=== PATIENT | female | born 1945 | race Caucasian/White ===

== ENCOUNTER → 2017-11-22 | Outpatient (CLI) | payer OTHER ==
[~2017-11-22] MED LIST: AMLODIPINE BESY10 MG PO; DICLOFENAC SODI75 MG PO; KAPSPARGO SPRI100 MG PO; METFORMIN HCL500 MG PO; NORCO 5-325 TA1 EACH PO; OMEPRAZOLE 20 M20 M1 PO; ZOCOR20 MG PO
--- NOTE | 2018-01-02 16:06 | PATH ---
[address] [address] PATHOLOGY RPT PROCEDURE Name: JUNIORAVA Christine Room: [facility] Jie#: [id number] Admission: 11/22/17 Date of : 49 Discharge: Report #: [id number] Path Case #: [id number] [facility] Accession Number: [id number] . 01 Material submitted: . LEFT BREAST . 01 Pre-operative diagnosis: . . 01 Clinical history: . 1.5 x 1.4 x 1.5 cm mass, 1:00, 4 cm from nipple . 02 Diagnosis: Left breast, 1:00, 4 cm from nipple, image-guided core biopsies: - Infiltrating ductal adenocarcinoma, high-grade (III of III), spanning 11 mm, with focal micropapillary features. See comment. (HAILEY:ludy; 11/24/2017) QMS/11/24/2017 . 02 Comment: Specimen type: Image guided core biopsies Tumor site: Left breast, 1:00, 4 cm from nipple Tumor quantitation: Approximately 95% of submitted tissues Histologic type: Ductal adenocarcinoma Histologic grade: III/III (high grade) Tubules, nuclei and mitoses: 3, 3, 3 LVSI: Indeterminate Microcalcifications: Not identified Markers: Breast tumor profile pending Block: A1 . . Most of the submitted tissues shows high-grade ductal carcinoma with focal micropapillary features and foci indeteriminate for lymphovascular invasion. Breast tumor profile studies are pending on A1 and will be the subject of an addendum report. Reviewed with Dr. Shant Vazquez, who agrees with the diagnosis. Cecile (acting [facility] breast navigator) notified at approximately 1100 on 11/25/2017. . . (HAILEY:ludy; 11/24/2017) . 02 Addendum: . Special studies report received from [facility], [address] [place] [address], [address], [place], [address], on case [id number], labeled with their number [id number], dated 11/28/2017. . Predictive/Prognostic [place] [address] PATHOLOGY RPT PROCEDURE Name: AVA PACHECO Christine Room: [facility] SUE Ceron#: [id number] Admission: 11/22/17 Date of : 49 Discharge: Report #: [id number] Path Case #: [id number] . Specimen 1: Lt Breast Specimen ID#: [id number] ER Present/Positive Percent: 4.8% Intensity: Weak Analysis Type: Computer Assisted . TX Absent/Negative Percent: 0 Intensity: Not Applicable Analysis Type: Computer Assisted . HER2 Not Over-Expressed Score: 1+ Analysis Type: Computer Assisted . KI67 High Proliferation Percent: 55.0% Analysis Type: Computer Assisted . Fixation Information Type of Fixative : 10% Neutral Buffered Formalin Time to Fixation : 5 minutes Duration of Fixation : 28 hours 28 minutes . Codes: Reported CPT Code(s): 29948-75 X 4 . at [facility], Naye Montero MD . Methodology The HER2 Receptor protein expression is analyzed using the [place] HER2 rabbit monoclonal antibody (clone [id number]). This assay is used for diagnostic determination of the HER2 protein over-expression in paraffin embedded, formalin fixed breast cancer tissue on the [place] Benchmark. The specimen is processed using a polymer detection system. The membrane staining of the tumor is determined either by manual score or image analysis. This antibody is intended for in vitro diagnostic use. The score is reported as per package insert; 0, 1+, 2+, and 3+. This test is used for clinical purposes. . A rabbit monoclonal antibody (clone SP1) that [place] [address] PATHOLOGY RPT PROCEDURE Name: AVA PACHECO Room: [facility] Jie#: [id number] Admission: 11/22/17 Date of : 49 Discharge: Report #: [id number] Path Case #: [id number] Receptor is used to perform immunohistochemistry on routinely fixed (formalin) paraffin embedded tissue on the [place] Benchmark. The specimen is processed using a polymer detection system. The percentage of stained tumor nuclei is determined either manually or by image analysis. This test is intended for in vitro diagnostic use. This test is used for clinical purposes. . A rabbit monoclonal antibody (clone 1E2) that recognized the Progesterone Receptor is used to perform immunohistochemistry on routinely fixed (formalin) paraffin embedded tissue on the [place] Benchmark. The specimen is processed using a polymer detection system. The percentage of stained tumor nuclei is determined either manually or by image analysis. This test is intended for in vitro diagnostic use. This test is used for clinical purposes. . A rabbit monoclonal antibody (clone 30-9) that recognized Ki67 is used to perform immunohistochemistry on routinely fixed (formalin) paraffin embedded tissue on the [place] Benchmark. The specimen is processed using a polymer detection system. The percentage of stained tumor nuclei is determined either manually or by image analysis. This test is intended for in vitro diagnostic use. This test is used for clinical purposes. . Intended Use (when used as Prognostic/Predictive Markers): This antibody is intended for in vitro diagnostic (IVD) use. Estrogen Receptor (ER) (SP1) is a rabbit monoclonal antibody (IgG) that is intended for the qualitative detection of estrogen receptor (ER) antigen in sections of formalin-fixed, paraffin-embedded tissue. ER is a rabbit monoclonal antibody that recognizes human estrogen receptor alpha. . This antibody is intended for in vitro diagnostic (IVD) use. Progesterone Receptor (TX) (1E2) is a rabbit monoclonal antibody (IgG) that is intended for the qualitative detection of progesterone receptor (TX) antigen in sections of formalin fixed, paraffin embedded tissue. TX is a rabbit monoclonal antibody that recognizes the A and B forms of the human progesterone receptor. . This antibody is intended for in vitro diagnostic (IVD) use. HER2 (4B5) is a rabbit monoclonal antibody intended for the semi-quantitative detection of HER2 antigen in sections of formalin-fixed, paraffin embedded normal and neoplastic tissue. The HER2 protein is expressed as a level detectable by immunohistochemistry in up to 20 percent of adenocarcinomas from various sites. . This antibody is intended for in vitro diagnostic (IVD) use. Ki-67 (30-9) is a rabbit monoclonal antibody (IgG) directed against C-terminal portion of Ki-67 antigen. Staining for Ki-67 can be used to aid in assessing the proliferative activity of normal and neoplastic tissue. Ki-67 is a nuclear protein expressed in proliferating cells. During the cell cycle, the Ki-67 antigen is present in the G1, S, G2 and M phase but is absent in the G0 [place] [address] PATHOLOGY RPT PROCEDURE Name: AVA PACHECO Room: [facility]#: [id number] Admission: 11/22/17 Date of : 49 Discharge: Report #: [id number] Path Case #: [id number] (quiescent phase). . . Disclaimer [facility] is a business unit of [employer] a wholly-owned subsidiary of [employer]. . Technical component performed by [employer] at [address], [place] [address], [place] [address] Jeremy Sidhu MD . Professional component performed by [facility], at [address] [place] [address] . Any image(s) that accompany this report is/are a procurement representative image(s) only and should not be used to render a diagnosis. . HER2 testing at [employer] is performed in compliance with the 2013 updated ASCO/CAP Clinical Practice Guidelines and Recommendations for HER2 testing in Breast Cancer. If the result is EQUIVOCAL (2+), it must be confirmed by an alternative assay such as FISH or Dual SARI. REF: Iris EVANS, et al. Recommendations for human epidermal growth factor receptor 2 testing in breast cancer: [place] Society of Clinical Oncology/College of Chinese pathologists Clinical Practice Guideline Update. J Clin Oncol. 2013 Feb 09;31(31):2807-4163. . HER2 and ER/TX ASCO/CAP guidelines require fixation in neutral buffered formalin for a minimum of 6 and a maximum of 72 hours. Fixation times less than 6 hours may not adequately preserve cell proteins. Fixation times longer than 72 hours may cause excess cross-linking of proteins reducing the antigen available for staining. Either scenario can cause reduced staining; hence false negative results are possible and should be considered for these situations if the HER2 IHC score is less than 3+ or ER or TX is negative (no staining or <1% positive). It is recommended that specimens fixed longer than 72 hours with HER2 IHC scores less than 3+ be confirmed by HER2 FISH or Dual SARI. The time from biopsy/excision to fixation in formalin (cold ischemic time) must be less than 1 hour. Time to fixation (cold ischemic time) greater than 1 hour should be interpreted with caution. HER2 testing, mainly HER2 by FISH, is particularly vulnerable since excessive cold ischemic time results in preferential loss of HER2 probe signals that may lead to false negative results. . The immunohistochemistry tests performed at [employer] were validated on tissue fixed in 10% neutral buffered formalin. The performance characteristics of the tests performed on tissue processed in other fixatives is not known. . SCORE STAINING PATTERN IN TUMOR CELL[place] [address] PATHOLOGY RPT PROCEDURE Name: AVA PACHECO Room: [facility] Ceron#: [id number] Admission: 11/22/17 Date of : 49 Discharge: Report #: [id number] Path Case #: [id number] RESULTS 0 No staining observed or incomplete, faint membrane staining in less than or equal to 10% of tumor cells. Negative 1+ Incomplete, faint membrane staining in greater than 10% of tumor cells. Negative 2+ Incomplete and/or weak/moderate circumferential membrane staining . in greater than 10% of the invasive tumor cells or complete, . circumferential, intense alternative assay staining in less than or equal to 10% of invasive tumor cells. Equivocal* *Must be confirmed by alternative assay (IHC/FISH/Dual SARI) 3+ Intense, complete membrane staining in greater than 10% of tumor cells. Positive . A complete copy of the report is on file. . Professional services performed by Professional component performed by [facility], [facility] at [address] [place] [address]. Technical services performed by [employer] at [facility] [address], [address], [place] [address]. . (AMJ 11/29/2017) . AZJ/11/29/2017 Addendum Electronically Signed by Lex Culp MD, Pathologist Addendum #2: Special studies report received from [facility], [address] [place] [address], [address], [place], [address], on case [id number], labeled with their number [id number], dated 12/30/2017. . Fluorescence in situ Hybridization (FISH) Report HER2/MIGUEL ANGEL-17 Dual-Probe (Breast Cancer) . Result: Cannot be Determined: See Result Comments . Indication for Study: Breast Cancer Specimen Site/Type: Left Breast Tissue - 1:00 Fixative: 10% Neutral Buffered Formalin Time to Fixation: 5 Minutes Duration of Fixation: 28 Hours 29 Minutes . HER2 FISH ANALYSIS [address] [address] PATHOLOGY RPT PROCEDURE Name: AVA PACHECO Room: [facility]#: [id number] Admission: 11/22/17 Date of : 49 Discharge: Report #: [id number] Path Case #: [id number] Number of tumor cells counted: 20 Number of observers: 2 Avg number of HER2 Signals/Nucleus: 6.4 Avg number of MIGUEL ANGEL-17 Signals/Nucleus: 4.9 Ratio of average HER2/MIGUEL ANGEL-17: 1.3 . Result Comments: By 2018 ASCO/CAP HER2 guidelines, the FISH result does not allow for definitive characterization of HER2 status. Within the guidelines, this case falls into SARI group (3). Please correlate the IHC result with the FISH findings provided in this report for the final determination of HER2 status. HER2 IHC was ordered as Technical Component only for this case. . Date specimen retrieved from storage: 12/27/2017 . Reviewed and electronically signed by Jeremy Sidhu M.D. on 12/30/2017 at [employer] Jeremy Sidhu M.D. Psychological Operations Officer . Methodology: A FDA approved [employer]Or HER2 IQFISH pharmDXT (HER2/MIGUEL ANGEL-17 DNA Probe Kit) was used for the assessment of HER2 gene amplification status. The FISH analysis was performed on areas of invasive tumor cells that were defined by a pathologist from a corresponding H/E slide. A minimum of twenty invasive tumor nuclei were analyzed by two technologists. For each nucleus, the number of HER2 signals and the number of centromere 17 (MIGUEL ANGEL-17) signals were recorded. Enumeration results are reported as a ratio of the total HER2 hybridization signals to MIGUEL ANGEL-17 hybridization signals. An average number of HER2 signals/nucleus and an average number of centromere 17 signals/nucleus were also recorded. If the HER2/MIGUEL ANGEL-17 ratio is greater than or equal to 2, the HER2 gene status is Amplified/ Positive. If the HER2/MIGUEL ANGEL-17 ratio is <2, the HER2 gene status is Non-Amplified/Negative. If results are at or near the cut off (1.8-2.2), an additional 20 nuclei are counted and the ratio for 40 nuclei is recalculated. A HER2/MIGUEL ANGEL-17 ratio of 1.8-2.2 should be interpreted with caution. The HER2 FISH results are reported using the 2018 ASCO/CAP guidelines. . Specimen handling: Tissue samples should be preserved in 10% neutral buffered formalin for 18-24 hours per FDA approved DAKOr HER2 IQFISH pharmDXT. Extended fixation time might increase the incubation time required for Pepsin digestion. ASCO/CAP guidelines requires fixation for a minimum of 6 and a maximum of 72 hours. The time from biopsy/excision to fixation in formalin (cold ischemic time) must be less than an hour. Time to fixation (cold ischemic time) greater than 1 hour should be interpreted with caution. HER2 testing, mainly HER2 by FISH, [place] [address] PATHOLOGY RPT PROCEDURE Name: AVA PACHECO Room: [facility] Ceron#: [id number] Admission: 11/22/17 Date of : 49 Discharge: Report #: [id number] Path Case #: [id number] cold ischemic time results in preferential loss of HER2 probe signals that may lead to false negative results. . Intended Use: HER2 IQFISH pharmDXT is indicated as an aid in the assessment of breast cancer patients for whom Herceptinr (Trastuzumab), PERJETATM (pertuzumab) or KADCYLATM(ado-trastuzumab emtansine) treatment is being considered. Results from HER2 IQFISH pharmDXT are also used as an adjunct to the clinicopathologic information currently used for estimating prognosis in stage II, node-positive breast cancer patients. . . Reference: Iris EVANS, BENITO Michel et al: Human Epidermal Growth Factor Receptor 2 Testing in Breast Cancer: ASCO/CAP Clinical Practice Guideline Focused Update. J Clin Oncol 36:3526-0018, 2018. . DAKO kit: Histology FISH Accessory kit code K5799 . . Disclaimer This Test was performed by [employer] at [address] [place] [address], [address]. [facility] is a business unit of [employer], a wholly-owned subsidiary of [employer]. . . This assay has not been validated on decalcified tissues. Results should be interpreted with caution if this specimen was decalcified given the likelihood of false negativity on decalcified specimens. . Any image(s) that accompany this report is/are a procurement representative image(s) only and should not be used to render a diagnosis. . A copy of the complete report is on file. . Professional services performed by [employer]. at [facility] [address], [place] [address]. Technical services performed by [employer] at [facility] [address] [address]. . (AMJ 01/02/2018) AZJ/01/02/2018 Addendum Electronically Signed by Lex Culp MD, Pathologist . 02 Electronically signed: . Lex Culp MD, Pathologist NPI- [id number] [facility] [address] [place] [address] PATHOLOGY RPT PROCEDURE Name: AVA PACHECO Room: [facility]#: [id number] Admission: 11/22/17 Date of : 49 Discharge: Report #: [id number] Path Case #: [id number] . 01 Gross description: . Received in formalin labeled "Ava Pacheco, left breast 1:00, 4 cm FN," are multiple needle cores of yellow-guerrero fibrofatty tissue measuring 1.8 x 0.6 x 0.2 cm in aggregate dimensions. The tissue is submitted in its entirety in cassettes A1 through A3. The cold ischemic time is 5 minutes. The total formalin fixation time is 28 hours and 28 minutes. (TSD; 11/22/2017) TOB/TOB . 02 Pathologist provided ICD-10: C50.912 . 02 CPT . 466881 Specimen Comment: A courtesy copy of this report has been sent to Specimen Comment: [phone], , . Specimen Comment: A duplicate report has been generated due to demographic updates. Performed at: [id number] [facility] [address], [place], [place] [id number] MD Danial Cesar MD Phone: [phone] Performed at: 02 [facility] [address] , [place], [place] [id number] MD Lex Culp MD Phone: [phone]
== END ==
LOC: M.RAD 11-14 13:37
DX: Z12.31 Encounter for screening mammogram for malignant neoplasm of breast (principal); N63.20 Unspecified lump in the left breast, unspecified quadrant; E04.9 Nontoxic goiter, unspecified

== ENCOUNTER → 2017-11-22 | Outpatient (CLI) | payer OTHER | LOC: M.ULTRA 13:10 | DX: N63.20 Unspecified lump in the left breast, unspecified quadrant (principal); R92.1 Mammographic calcification found on diagnostic imaging of breast ==

== ENCOUNTER → 2017-12-07 | Outpatient (CLI) | payer OTHER ==
[2017-12-07 13:45] LABS: CREATININE 0.9 mg/dL (0.6-1.3)
== END ==
LOC: M.LAB 13:13 → M.MRI 14:30
PROVIDERS: Surgery
DX: C50.912 Malignant neoplasm of unspecified site of left female breast (principal); C50.911 Malignant neoplasm of unspecified site of right female breast

== ENCOUNTER → 2017-12-09 | Outpatient (CLI) | payer OTHER ==
--- NOTE | 2017-12-18 13:16 | CON ---
[address] [address] CONSULTATION Name: EMANUEL PACHECO Room: [facility]#: [id number] Admission: 12/09/17 Attend Phys: Jeffry Negro MD Discharge: Date of : 49 Report #: [id number] THIS REPORT FOR: //name// CC: Jordan Light, CIELO Mark MD DATE OF SERVICE: 12/09/2017 RADIATION ONCOLOGY CONSULTATION NOTE REFERRING PHYSICIANS: Include: 1. Carly Mark M.D. 2. Jordan Silveira DO. 3. Nurse practitioner, [place] Light. 4. Jhonatan Kimball M.D. 5. Jeffry Goss M.D. PRIMARY SITE AND HISTOPATHOLOGY: The patient has findings consistent with an infiltrating ductal carcinoma of the left breast. HISTORY OF PRESENT ILLNESS: The patient indicated that she had a routine mammogram performed on 11/22/2017 and that revealed a lobulated mass in the left breast, that measured about 2.5 cm x 1.7 cm. She had an ultrasound-guided biopsy of this mass performed on 11/22/2017 and the pathology revealed a high grade, (grade 3/3), infiltrating ductal carcinoma with focal micropapillary features. It was 4.8% estrogen receptor positive, 0% progesterone receptor positive, HER2/sarah negative and Ki-67 was 55%. She had an MRI of the breast on 12/07/2017, which revealed a normal right breast, whereas the left breast had an enhancing mass in the upper outer quadrant, that measured about 2.7 cm x 2.3 cm x 2.8 cm as well as an enlarged left axillary lymph node with a lobulated cortex, concerning for an axillary lymph node metastasis. She presents to discuss her treatment options. PAST MEDICAL AND SURGICAL HISTORY: She had a cholecystectomy in 1975. She had a hysterectomy in 1985. She had a left shoulder operation in 2002. She had right knee operation in 2012, left knee operation in 2012 and sarcoidosis in 1989. She also has hypertension and diabetes. She had a melanoma that was removed from her face about 8 years ago. MEDICATIONS: Include Lopressor, simvastatin, amlodipine, omeprazole, [place] [address] CONSULTATION Name: EMANUEL PACHECO [facility] [id number] Admission: 12/09/17 Attend Phys: Jeffry Negro MD Discharge: Date of : 49 Report #: [id number] ALLERGIES: SULFA AND ADHESIVE TAPES. OBSTETRIC/GYNECOLOGIC HISTORY: Menarche at age 13, menopause in 1985. She is 4, para 2. FAMILY HISTORY: Mother had heart disease. Father had heart disease. SOCIAL HISTORY: She is retired. She is . She has 2 children. Ethanol: she drinks about one alcohol-containing beverage like wine per month. Cigarettes: she does not smoke cigarettes. REVIEW OF SYSTEMS: GENERAL: She denied having fevers or chills. SKIN: She denied having color changes or itching. LYMPH NODES: She denied having enlarged or painful glands in the neck. ENDOCRINE: She denied having any hot or cold intolerance. HEMATOLOGY/IMMUNOLOGY: The patient denied having anemia or recent bleeding. MUSCULOSKELETAL: She does have chronic back pain. HEAD AND NECK: She denied having any headaches, migraines or vertigo. RESPIRATORY: She sometimes has a cough from allergies. CARDIOVASCULAR: She denied having palpitations. GASTROINTESTINAL: Depending on her diet, she can have intermittent diarrhea that resolves on its own. NEUROLOGIC: She denied having any focal weakness. PHYSICAL EXAMINATION: With my nurse, Tanisha Page, present: VITAL SIGNS: Height 5 feet 1-1/2 inches, weight 232.8 pounds. Blood pressure 120/70 and pulse 66. GENERAL/PSYCHIATRIC: She was alert, oriented, and in no acute distress. EYES: Pupils were equal, round and reactive to light and accommodation. HEAD, EARS, NOSE AND THROAT EXAMINATION: The patient does have a palpable mass in the right submandibular area that measured about 2 cm x 2 cm. BREASTS: She does have a seroma versus palpable mass in the upper outer quadrant of the left breast, that measured about 2.3 cm x 2 cm. HEART: Had a regular rate and rhythm, without murmur. LUNGS: were clear to auscultation. ABDOMEN: Not tender. Spleen was not palpable. Liver was at the costal margin. EXTREMITIES: Had no clubbing, cyanosis or edema. NEUROLOGIC: Cranial nerves II to XII were intact. Sensation was intact. She had 5/5 strength in her extremities. ASSESSMENT AND PLAN: The patient has findings consistent with an infiltrating [address] [address] CONSULTATION Name: EMANUEL PACHECO [facility] [id number] Admission: 12/09/17 Attend Phys: Jeffry Negro MD Discharge: Date of : 49 Report #: [id number] ductal carcinoma of the left breast. There is a suspicious lymph node on her MRI. So, she was told that her options include breast conservation therapy versus mastectomy. This is based on studies such as the NSABP B-06 study, which randomized patients with early breast cancer between total mastectomy versus lumpectomy versus lumpectomy and radiation therapy. At 20 years followup, there was no difference in the survival rate between those 3 treatment groups. The addition of radiation therapy to lumpectomy reduced the local failure rate from 39% to 14%. She was told that if she opts for mastectomy, that only high-risk patients are offered radiation therapy. In that situation, those would be people that have lymph nodes involved with cancer versus positive margins versus breast cancers that were greater than 5 cm in size. The risks, benefits and logistics of radiation therapy were discussed with the patient in detail. She was leaning towards breast conservation therapy. So the risks, benefits and logistics of radiation therapy were explained to the patient in detail. She gave her witnessed, informed consent to proceed with radiation therapy. She was going to follow up with her ear, nose and throat physician, Dr. Goss, and her surgeon with scheduling her operations. She was asked to return for a follow up appointment to see me in approximately 6 weeks. She already saw her medical oncologist, Dr. Kimball. Thank you very much for this consult. <ELECTRONICALLY SIGNED> By: Jeffry Negro MD 12/18/17 1316 1228 0024Dmatti Negro MD /nt
== END ==
LOC: M.RTH 02:31
DX: C50.912 Malignant neoplasm of unspecified site of left female breast (principal); I10 Essential (primary) hypertension; E11.9 Type 2 diabetes mellitus without complications

== ENCOUNTER → 2017-12-14 | Outpatient (CLI) | payer OTHER ==
--- NOTE | 2018-01-02 14:09 | PATH ---
[address] [address] PATHOLOGY RPT PROCEDURE Name: AVA DWYER Christine Room: [facility] Jie#: [id number] Admission: 12/14/17 Date of : 49 Discharge: Report #: [id number] Path Case #: [id number] [facility] Accession Number: [id number] . 01 Material submitted: . LEFT AXILLA NODE . 01 Clinical history: . 2.4 x 1.0 x 2.0 cm node . 02 Diagnosis: Left axilla node, image guided core biopsies: - Benign lymphoid tissue. [facility]/12/16/2017 . 02 Comment: The great majority of all tissue cores represent benign lymphoid tissue and there is also evidence of a lymph node capsule in several cores. Properly controlled keratin AE1/AE3/CK26, performed on each of A1, A2 and A3, shows no evidence of metastatic tumor. (HAILEY:pit 12/16/2017) . 02 Electronically signed: . Lex Culp MD, Pathologist NPI- [id number] . 01 Gross description: . Received in formalin labeled "Ava Dwyer, left axilla node," are multiple needle cores of yellow-guerrero fibrofatty tissue measuring 0.8 x 0.6 x 0.2 cm in aggregate dimensions. The tissue is submitted in its entirety in cassettes A1 through A3. The specimen was collected at 8:56 AM, December 18, 2017. The specimen will be out of formalin at 11:40 PM, December 18, 2017. (TSD; 12/14/2017) TOB/TOB . 02 Pathologist provided ICD-10: R59.0 . 02 CPT . 408720, W87991 Specimen Comment: A courtesy copy of this report has been sent to Specimen Comment: [phone], , , . Specimen Comment: [id number] Performed at: [address] [facility] [address], [place], [place] [id number] MD Danial Cesar MD Phone: [phone] [place] [address] PATHOLOGY RPT PROCEDURE Name: AVA DWYER [facility] [id number] Admission: 12/14/17 Date of : 49 Discharge: Report #: [id number] Path Case #: [id number] Performed at: 02 [facility] [place] [address], [place] [id number] MD Lex Culp MD Phone: [phone]
== END | disposition home or self-care (01) ==
LOC: M.ULTRA 07:31
DX: R59.0 Localized enlarged lymph nodes (principal)

== ENCOUNTER → 2017-12-30 | Day surgery (SDC) | payer OTHER ==
[~2017-12-30] VITALS: Ht 154.9 cm; Wt 103.4 kg
[2017-12-30 07:12] LABS: HEMATOCRIT 42.6 % (37.0-47.0); HEMOGLOBIN 14.1 gm/dL (12.0-15.0); MCH 32.7 pg (26.0-34.0); MCHC 33.1 g/dL (28.0-37.0); MCV 98.5 fL (80.0-100.0); MPV 8.5 fl. (7.2-11.1); RBC 4.32 mil/uL (4.20-5.00); RDW-CV 13.1 % (10.5-14.5); WBC 8.6 thou/uL (4.0-11.0)
[2017-12-30 07:32] LABS: CALCIUM 8.7 mg/dL (8.5-10.1); CREATININE 0.8 mg/dL (0.6-1.3); POTASSIUM 4.3 mmol/L (3.5-5.1)
[2017-12-30 07:36] LABS: ALBUMIN 3.9 g/dL (3.4-5.0); TOTAL BILIRUBIN 0.4 mg/dL (<0.1-1.0); TOTAL PROTEIN 7.5 g/dL (6.4-8.2)
[2017-12-30 07:46] VITALS: BP 109/60
--- NOTE | 2017-12-30 11:43 | EKG ---
[place] [address] ELECTROCARDIOGRAM REPORT Name: JUNIORADEOLAEMANUEL L Room: [facility]#: [id number] Admission: 12/30/17 Attend Phys: Carly Mark MD Discharge: Date of : 49 Report #: [id number] THIS REPORT FOR: //name// [facility] Test Date: 2017-12-30 Test Time: 07:45:42 Pat Name: EMANUEL PACHECO Department: Room: Gender: F It Operations Specialist: : 1945 Requested By: Carly Mark Order Number: [id number] Reading MD: Fan Marie Measurements Intervals Amity Rate: 62 P: 32 ND: 195 QRS: 20 QRSD: 118 T: 54 QT: 447 QTc: 454 Interpretive Statements Sinus rhythm Nonspecific intraventricular conduction delay Low voltage, precordial leads No previous ECG available for comparison Electronically Signed On 12-30-2017 11:43:30 CDT by Fan Marie [email or web address] <ELECTRONICALLY SIGNED> By: Fan Marie MD, [facility] 12/30/17 1143 D: 09/744 Fan Marie MD, FACC /EPI
[2017-12-30 13:19] VITALS: BP 109/60
--- NOTE | 2018-01-05 15:07 | PATH ---
[address] [address] PATHOLOGY RPT PROCEDURE Name: EMANUEL DWYER Room: [facility]#: [id number] Admission: 12/30/17 Date of : 49 Discharge: Report #: [id number] Path Case #: [id number] [facility] Accession Number: [id number] . 01 Material submitted: . PART A: LEFT BREAST CANCER STITCH, SHORT SUPERIOR,LONG LATERAL, DOUBLE DEEP PART B: LEFT BREAST NEW MEDIAL MARGIN PART C: LEFT BREAST NEW LATERAL MARGIN PART D: LEFT BREAST TISSUE NEW SUPERIOR MARGIN PART E: LEFT BREAST NEW INFERIOR MARGIN PART F: LEFT BREAST TISSUE NEW ANTERIOR MARGIN PART G: LEFT BREAST NEW POSTERIOR MARGIN PART H: LEFT AXILLARY SENTINEL LYMPH NODE #1 HOT, BLUE MAX COUNT 1880 PART I: LEFT AXILLARY SENTINEL LYMPH NODE #2 HOT, NOT BLUE, MAX COUNT 493 . 01 Clinician provided ICD-10: C50.912 . 01 Clinical history: . Left breast cancer. . 02 Diagnosis: A. Left breast cancer: - DUCTAL ADENOCARCINOMA, HIGH-GRADE (III OF III), WITH MICROPAPILLARY FEATURES ASSOCIATED WITH CHANGES OF PRIOR BIOPSY, FORMING A MASS MEASURING 32 MM X 24 MM X 19 MM WITH ALL SURGICAL MARGINS FREE OF INVOLVEMENT AND CLOSEST (ANTERIOR) LOCATED 0.1 MM AWAY. . - DUCTAL CARCINOMA IN SITU (DCIS), NUCLEAR GRADE III, COMEDO, SOLID AND CRIBRIFORM TYPES, SPANNING AT LEAST 15 MM WITH INVOLVEMENT OF LATERAL MARGIN (SEE COMMENT). . B. Left breast new medial margin: - Benign fat. . C. Left breast, new lateral margin: - DCIS, NUCLEAR GRADE III, COMEDO TYPE, SPANNING 5 MM, WITH FINAL SURGICAL MARGIN FREE OF INVOLVEMENT AND LOCATED 0.8 MM AWAY (SEE COMMENT). . D. Left breast tissue new superior margin: - Benign breast tissue, negative for atypia. . E. Left breast new inferior margin: - Benign breast tissue with usual ductal epithelial hyperplasia, negative for atypia. . F. Left breast tissue new anterior margin: - Benign breast tissue, negative [place] [address] PATHOLOGY RPT PROCEDURE Name: EMANUEL DWYER Room: [facility]#: [id number] Admission: 12/30/17 Date of : 49 Discharge: Report #: [id number] Path Case #: [id number] G. Left breast new posterior margin: - Benign breast tissue with usual ductal epithelial hyperplasia, negative for atypia. . H. Left axillary sentinel lymph node #1 (hot, blue max count 1880): - ONE LYMPH NODE WITH INVOLVEMENT BY MICROMETASTASIS OF DUCTAL ADENOCARCINOMA MEASURING 1.7 MM, WITH CHANGES OF PRIOR BIOPSY (04/11) (SEE COMMENT). . I. Left axillary sentinel lymph node #1 (hot, not blue, max count 493): - One benign lymph node (see comment). [facility]/01/03/2018 . 02 Comment: Surgical Pathology Cancer Case Summary . INVASIVE CARCINOMA OF THE BREAST: . Procedure ___ Lumpectomy . Specimen Laterality ___ Left . Tumor Size ___ Greatest dimension of largest invasive focus >1 mm: 32 mm x 24 mm x 19.mm . Histologic Type ___ Ductal carcinoma with prominent micropapillary features . HISTOLOGIC GRADE (MANUEL HISTOLOGIC SCORE) . Glandular (Acinar)/Tubular Differentiation ___ Score 3 (<10% of tumor area forming glandular/tubular structures) . Mitotic Rate ___ Score 3 (=8 mitoses per mm2) . Overall Grade ___ Grade 3 (scores of 8 or 9) . + Tumor Focality + ___ Single focus of invasive carcinoma . Ductal Carcinoma In Situ (DCIS) ___ Present + ___ Negative for extensive intraductal component (EIC) [place] [address] PATHOLOGY RPT PROCEDURE Name: EMANUEL DWYER [id number] Admission: 12/30/17 Date of : 49 Discharge: Report #: [id number] Path Case #: [id number] . + Size (Extent) of DCIS + Estimated size of DCIS: At least 15 mm . + Architectural Patterns (select all that apply) + ___ Comedo, cribriform, and solid . + Nuclear Grade + ___ Grade III (high) . + Necrosis + ___ Present, central (expansive "comedo" necrosis) . + Lobular Carcinoma In Situ (LCIS) + ___ No LCIS in specimen . MARGINS ___ Uninvolved by invasive carcinoma Distance from closest margin: ___ Cannot be determined with certainty: Closest margin in lumpectomy is anterior, located 0.1 mm away; however, additional margins taken around primary lumpectomy and additional anterior margin measuring up to 6 mm in thickness. DCIS MARGINS ___ Uninvolved by DCIS Distance from closest margin: 0.8 mm Specify closest margin: Lateral REGIONAL LYMPH NODES ___ Involved by tumor cells Number of Lymph Nodes with Macrometastases (>2 mm): 0 Number of Lymph Nodes with Micrometastases (>0.2 mm to 2 mm and/or >200 cells): 1 + Size of Largest Metastatic Deposit: 1.7 mm . + Extranodal Extension: + ___ Not identified . Number of Lymph Nodes Examined: 2 Number of [place] Nodes Examined: 2 . Treatment Effect ___ No known presurgical therapy . + Lymphovascular Invasion + ___ Present . + Dermal Lymphovascular Invasion + ___ [place] [address] PATHOLOGY RPT PROCEDURE Name: REYMUNDOEMANUEL Christine Room: [facility]#: [id number] Admission: 12/30/17 Date of : 49 Discharge: Report #: [id number] Path Case #: [id number] PATHOLOGIC STAGE CLASSIFICATION (pTNM, AJCC 8th EDITION) Primary Tumor (Invasive Carcinoma) (pT) ___ pT2:Tumor >20 mm but =50 mm in greatest dimension . REGIONAL LYMPH NODES Modifier ___ (sn):[place] node(s) evaluated. Category (pN) ___ pN1mi: Micrometastases . + Ancillary Studies (Performed on prior left breast, 1:00, 4 cm from nipple biopsy; [id number]) ER 4.8%, IN 0, Her2 1+/not over expressed with subsequent FISH indeterminant, Ki-67 55%. . + Microcalcifications + ___ Not identified . . Per discussion of the preliminary findings with Dr. Mark at approximately 15:25 on 01/02/2018, she notes that the sutured surface of each of the additional margins represented the new true surgical margins. High-grade DCIS is identified in the additional left lateral breast margin immediately adjacent to the blue inked surface and located 0.8 mm away from the black-inked new true surgical margin (C2). Properly-controlled keratin AE1/AE3/CK26 performed on H1, H4, and I1, keratin SHERI performed on H2 and cytokeratin performed on H3 highlights evidence of metastatic tumor cells in both H1 and H2. . H2 reviewed with Dr. Martha Aguirre who agrees with the diagnosis. (HAILEY:pit 01/03/2018) . 02 Electronically signed: . Lex Culp MD, Pathologist NPI- [id number] . 01 Gross description: . A. Received in formalin labeled "Reymundo, Emanuel, left breast cancer stitch short-superior, long-lateral, double-deep" is an oriented breast lumpectomy specimen which measures 5.3 cm from superior to inferior, 3.7 cm from medial to lateral, and 2.0 cm from anterior to posterior. The specimen is inked as follows: Superior-red, inferior-blue, anterior-green, posterior-black, lateral-orange, medial-yellow. A guidewire is located within the container, but is not within the specimen. The specimen is serially sectioned from superior to inferior into 13 slices to reveal a bowen-white firm mass located within slices 6-13. The mass measures 3.2 x 2.4 x 1.9 cm, and a biopsy clip and biopsy cavity are not grossly identified. The mass measures to the margins as follows: 2.0 cm to superior, 0.3 cm to medial, 0.5 cm to lateral, less than 0.1 [place] [address] PATHOLOGY RPT PROCEDURE Name: EMANUEL DWYER Room: [facility]#: [id number] Admission: 12/30/17 Date of : 49 Discharge: Report #: [id number] Path Case #: [id number] anterior, less than 0.1 cm to posterior, and 0.1 cm to inferior. The uninvolved breast parenchyma is yellow and lobulated with 10% dense white fibrous tissue. The specimen is submitted entirely as follows: A1 slice 1, superior margin, perpendicular sections A2 slices 2-3 A3 slice 4 A4 slice 5 A5 slice 6 A6 slice 7 A7 slice 8 A8-A9 slice 9 A10-A11 slice 10 A12-A13 slice 11 A14 slice 12 A15-A16 slice 13, inferior margin, perpendicular sections . The specimen is removed from the patient and placed in formalin at unspecified times on December 30, 2017. The specimen is removed from formalin at 1850 on January 01, 2018. . B. Received in formalin labeled "Reymundo, Emanuel, left medial breast" and labeled on the requisition as "left breast new medial margin" is an oriented portion of yellow-bowen lobulated fibroadipose tissue which measures 2.6 x 2.0 x 0.8 cm. A suture is present on one aspect, which is inked black. The opposite aspect is inked blue. The specimen is serially sectioned and submitted in cassettes B1-B2. . C. Received in formalin labeled "Reymundo, Emanuel, left lateral breast" and labeled on the requisition as "left breast new lateral margin" is an oriented portion of yellow-bowen lobulated fibroadipose tissue which measures 3.0 x 2.0 x 1.2 cm. A suture is present on one aspect, which is inked black. The opposite aspect is inked blue. The specimen is serially sectioned and submitted in cassettes C1-C3. . D. Received in formalin labeled "Reymundo, Emanuel, left superior breast" and labeled on the requisition as "left breast new superior margin" is an oriented portion of yellow-bowen lobulated fibroadipose tissue which measures 4.3 x 1.8 x 0.8 cm. A suture is present on one aspect, which is inked black. The opposite aspect is inked blue. The specimen is serially sectioned and submitted in cassettes D1-D3. . E. Received in formalin labeled "Reymundo, Emanuel, left inferior" and labeled on the requisition as "left breast new inferior margin" is an oriented portion of yellow-bowen lobulated fibroadipose tissue which measures 2.4 x 2.0 x 0.7 cm. A suture is present on one aspect, which is inked black. The opposite aspect is inked blue. The specimen is serially sectioned and submitted in cassettes E1-E2. . F. Received in formalin labeled "Reymundo, Emanuel, left anterior breast" [place] [address] PATHOLOGY RPT PROCEDURE Name: EMANUEL DWYER Room: [facility]#: [id number] Admission: 12/30/17 Date of : 49 Discharge: Report #: [id number] Path Case #: [id number] labeled on the requisition as "left breast new anterior margin" is an oriented portion of yellow-bowen lobulated fibroadipose tissue which measures 2.3 x 1.6 x 0.6 cm. A suture is present on one aspect, which is inked black. The opposite aspect is inked blue. The specimen is serially sectioned and submitted in cassette F1. . G. Received in formalin labeled "Emanuel Dwyer, left posterior breast" and labeled on the requisition as "left breast new posterior margin" is an oriented portion of yellow-bowen lobulated fibroadipose tissue which measures 2.6 x 2.0 x 1.0 cm. A suture is present on one aspect, which is inked black. The opposite aspect is inked blue. The specimen is serially sectioned and submitted in cassettes G1-G2. . H. Received in formalin labeled "Emanuel Dwyer, left axillary sentinel lymph node #1, hot, blue, max count 1880" is a 3.6 x 2.6 x 1.3 cm pink-bowen lymph node. Upon sectioning, a biopsy cavity is grossly identified. The lymph node has a fatty yellow-bowen cut surface without definitive tumor present. The specimen is submitted entirely in cassettes H1-H4. . I. Received in formalin labeled "Emanuel Dwyer, left axillary sentinel lymph node #2, hot, not blue, max count 493" is a 1.0 x 0.6 x 0.5 cm pink-bowen lymph node. The specimen is serially sectioned and submitted entirely in cassette I1. ([facility]; 12/31/2017) SYC/SYC . 02 Pathologist provided ICD-10: C50.912, D05.12, C77.3, N62 . 02 CPT . 872501, 691793, 221182, 599705, 554351, 573304, 590698, 684072, 564923, K05418, J98351 Specimen Comment: A courtesy copy of this report has been sent to Specimen Comment: [phone]. Specimen Comment: Report sent to Performed at: [address] [facility] [address], [place], [place] [id number] MD Danial Cesar MD Phone: [phone] Performed at: 02 [facility] [place], [place] [id number] MD Lex Culp MD Phone: [phone]
--- NOTE | 2018-01-19 09:12 | OP ---
[address] [address] OPERATIVE REPORT Name: EMANUEL PACHECO Room: [facility]#: [id number] Admission: 12/30/17 Attend Phys: Carly Mark MD Discharge: Date of : 49 Report #: [id number] THIS REPORT FOR: //name// CC: Aleida Mark DATE OF SERVICE: 12/30/2017 PREOPERATIVE DIAGNOSIS: Left breast cancer. POSTOPERATIVE DIAGNOSIS: Left breast cancer. PROCEDURES: 1. Right subclavian vein MediPort placement with fluoroscopic guidance. 2. Injection of blue dye. 3. Left breast needle localized lumpectomy. 4. Left axillary sentinel lymph node biopsy. SURGEON: Carly Mark MD YOUTH COUNSELOR: ALEXANDRA Gregorio. ANESTHESIA: General anesthesia. ESTIMATED BLOOD LOSS: 3 mL. SPECIMENS REMOVED: 1. Left breast mass. 2. Left breast additional medial margin. 3. Left breast additional inferior margin. 4. Left breast additional lateral margin. 5. Left breast additional superior margin. 6. Left breast additional posterior margin. 7. Left breast additional anterior margin. 8. Left axillary sentinel lymph node #1, hot, blue, max count 1880. 9. Left axillary sentinel lymph node #2, hot, not blue, max count 493. COMPLICATIONS: None. Other incision 5 cm in length, 2 cm from nipple, 2 o'clock position, periareolar and the tip of the MediPort in the SVC. INDICATIONS: The patient is a 72-year-old female who had a routine imaging on 11/22/2017 showing a 1.9 cm irregular, hypoechoic mass at the 1 o'clock position, left breast 4 cm from nipple and normal appearing axillary lymph node. Biopsy on 11/22/2017 showed grade 3 invasive ductal carcinoma, ER 4.5% [place] [address] OPERATIVE REPORT Name: EMANUEL PACHECO Room: [facility]#: [id number] Admission: 12/30/17 Attend Phys: Carly Mark MD Discharge: Date of : 49 Report #: [id number], SC negative, HER-2 negative, Ki-67 55%. She underwent an MRI, which confirmed the primary mass and also showed a mildly suspicious axillary lymph node. She underwent biopsy of the lymph node, which returned as negative. The plan had been discussed with Oncology that she would manage this as a triple negative breast cancer. She desired to proceed with surgery prior to chemotherapy and felt that she was appropriate to receive chemotherapy in a nonneoadjuvant manner. Therefore, risks and benefits for breast conservation with a left breast needle localized lumpectomy and sentinel node biopsy and a right subclavian vein MediPort were discussed with the patient and delineated in the H and P. The risks of the MediPort were discussed in the preoperative area to include pain, bleeding, infection, scarring, risk of pneumothorax and need for chest tube and further procedure. She voiced understanding and agreed to proceed. PROCEDURE IN DETAIL: The patient was brought to the operating room after informed consent had been obtained. Preoperatively, she had been taken to ultrasound for wire localization of the mass. She was then taken to Nuclear Medicine for injection for the sentinel node portion of the case. She was then brought to the operating room and placed under general anesthesia in the supine position. Bilateral arms were tucked, shoulder roll was placed and the bilateral chest and neck were prepped and draped in a normal sterile manner. Attention was first turned to the right subclavian vein. The right subclavian vein was accessed with a second attempt using the needle. A guidewire was inserted and fluoroscopy confirmed placement. At that point, skin anesthesia with combination of 1% lidocaine plain and 0.5% Marcaine with epinephrine was used in the site of the proposed pocket. A skin incision was made in this region with a knife. This was deepened through the subcutaneous tissues using the Bovie electrocautery. Blunt dissection was used to create a pocket of adequate size for the MediPort placement. At this point, the dilator and sheath were then advanced under Seldinger technique over the guidewire under direct fluoroscopic visualization. The guidewire and dilator were then removed. The MediPort tubing was then introduced through the sheath. The break-away sheath was removed. The MediPort tubing was then trimmed to the appropriate length and affixed to the MediPort device. The MediPort was then placed in the previously created pocket. It was aspirated and flushed with injectable saline without difficulty. It was then locked with 5 mL of heparin lock solution. The deep dermal layers were closed with interrupted 3-0 Vicryl sutures and skin was closed with 4-0 Monocryl in a subcuticular manner. Of note, she had been placed in Trendelenburg position for MediPort for the access of the subclavian vein. The drapes were taken down. Her bilateral arms were placed at 90 degrees and her left breast and axilla were then prepped and draped in normal sterile manner. Prior to all skin incisions, the previous combination of lidocaine was used. A periareolar skin incision was made with a knife. Prior to prepping and draping, 5 mL of Lymphazurin blue was injected into the intradermal and subdermal location in the upper outer periareolar region of the left breast. The left breast and axilla were then prepped [place] [address] OPERATIVE REPORT Name: EMANUEL PACHECO Room: [facility]#: [id number] Admission: 12/30/17 Attend Phys: Carly Mark MD Discharge: Date of : 49 Report #: [id number] manner. A periareolar skin incision was made with a knife. This was deepened through the subcutaneous tissues using the Bovie electrocautery. A path was created in the superficial plane toward the wire entrance site. Once the wire was identified, it was grasped with 2 hemostats and brought into the incision. The mass was clearly palpable and dissection was performed circumferentially around the mass using palpation guidance using the Bovie electrocautery. Once all margins were freed, the mass was removed, it was labeled for orientation purposes. It was then placed in the mammographic specimen tray and sent off for mammographic evaluation. The wound bed was copiously irrigated with normal saline. It was noted to be adequately hemostatic. Attention was then turned to resection of margins. The region of the medial margin was grasped with an Allis clamp. The Bovie electrocautery was used to excise a thin rim of tissue to encompass the new medial margin. This was repeated in the inferior, lateral, superior, posterior and anterior margins. All of these were labeled for orientation purposes and sent off for permanent specimen. At this point, the wound bed was again examined and noted to be hemostatic. A moistened Ray-Rissa sponge was placed and attention was turned to the axilla. The site of highest activity in the axilla was marked out with a marking pen. A skin incision was made in this region with a knife. This was deepened into the subcutaneous tissues using the Bovie electrocautery. A Weitlaner retractor was placed. The axillary fascia was divided and a superficial blue lymph node was identified. This was isolated with a combination of Ligaclip and Bovie electrocautery dissection. Once completely removed, counts were obtained and this was sent off as sentinel node #1. Attention was redirected to the axilla. There was an additional area of high activity noted. Dissection in this region yielded a small non-blue lymph node. This was isolated with a combination of Ligaclip and Bovie electrocautery dissection. Once completely removed, counts were obtained and this lymph node was sent off as sentinel node #2. Attention was then redirected to the axilla. There were no additional blue nodes noted in the baseline. The background counts were in the low double digits. Therefore, the decision was made to terminate the sentinel node procedure. The axilla was copiously irrigated with normal saline and noted to be adequately hemostatic. A single interrupted suture of 3-0 Vicryl was placed to reapproximate the axillary fascia. The deep dermal layer was closed with interrupted 3-0 Vicryl sutures and skin was closed with 4-0 Monocryl in a subcuticular manner. Attention was then returned to the breast incision. It was again examined and noted to be hemostatic and irrigated one final time. The deeper tissues were reapproximated with interrupted sutures of 3-0 Vicryl to close the space. The deep dermal layers were closed with interrupted 3-0 Vicryl sutures. Skin tethering was released using the Bovie electrocautery in the superficial plane. The skin was closed with 4-0 Monocryl in a subcuticular manner. All 3 wounds were dressed with Dermabond dressing. The patient tolerated the [place] [address] OPERATIVE REPORT Name: EMANUEL PACHECO Room: [facility]#: [id number] Admission: 12/30/17 Attend Phys: Carly Mark MD Discharge: Date of : 49 Report #: [id number] and needle counts were correct x 2 at the end of the procedure. She was transferred to the recovery in stable condition. <ELECTRONICALLY SIGNED> By: Carly Mark MD 01/19/1812 1234 1539Minmaribel Mark MD /nt
== END | disposition home or self-care (01) ==
LOC: M.SUR 06:53
PROVIDERS: Surgery
DX: C50.912 Malignant neoplasm of unspecified site of left female breast (principal); C77.3 Secondary and unspecified malignant neoplasm of axilla and upper limb lymph nodes; I10 Essential (primary) hypertension; E78.5 Hyperlipidemia, unspecified; K21.9 Gastro-esophageal reflux disease without esophagitis; Z90.49 Acquired absence of other specified parts of digestive tract; Z90.710 Acquired absence of both cervix and uterus; Z98.890 Other specified postprocedural states; Z79.899 Other long term (current) drug therapy; Z96.653 Presence of artificial knee joint, bilateral; Z88.2 Allergy status to sulfonamides; Z79.891 Long term (current) use of opiate analgesic

== ENCOUNTER → 2018-01-11 | Outpatient (CLI) | payer OTHER | LOC: M.ULTRA 13:53 | DX: N63.21 Unspecified lump in the left breast, upper outer quadrant (principal) ==

== ENCOUNTER → 2018-01-16 | Outpatient (CLI) | payer OTHER ==
--- NOTE | 2018-01-16 10:27 | 2DMMODE ---
[place] [address] 2 D/M-MODE ECHOCARDIOGRAM Name: EMANUEL PACHECO Christine Room: [facility]#: [id number] Admission: 01/16/18 Attend Phys: Jhonatan Kimball MD Discharge: Date of : 49 Date of Service: 01/16/18 1027 Report #: [id number] THIS REPORT FOR: //name// APPROVED REPORT Study performed: 01/16/2018 08:49:22 EXAM: Comprehensive 2D, Doppler, and color-flow Echocardiogram Patient Location: Out-Patient Status: routine BSA: 2.00 HR: 62 bpm BP: 115/60 mmHg Other Information Study Quality: Fair Indications Chemo 2D Dimensions IVSd: 9.19 (7-11mm) LVOT Diam: 20.69 (18-24mm) LVDd: 50.84 mm PWd: 7.39 (7-11mm) Ascending Ao: 28.95 (22-36mm) LVDs: 35.36 (25-40mm) Aortic Root: 31.06 mm Volumes Left Atrial Volume (Systole) LA ESV Index: 16.90 mL/m2 Aortic Valve AoV Peak Mango.: 1.34 m/s AO Peak Gr.: 7.16 mmHg LVOT Max P.95 mmHg AO Mean Gr.: 4.25 mmHg LVOT Mean P.36 mmHg LVOT Max V: 0.86 m/s AO V2 VTI: 31.82 cm LVOT Mean V: 0.53 m/s SANAM (VTI): 2.15 cm2 LVOT V1 VTI: 20.35 cm Mitral Valve E/A Ratio: 0.88 MV Decel. Time: 238.27 ms MV E Max Mango.: 0.76 m/s MV PHT: 69.10 [place] [address] 2 D/M-MODE ECHOCARDIOGRAM Name: EMANUEL PACHECO Room: [facility]#: [id number] Admission: 01/16/18 Attend Phys: Jhonatan Kimball MD Discharge: Date of : 49 Date of Service: 01/16/18 1027 Report #: [id number] MVA (PHT): 3.18 cm2 TDI E/Lateral E': 7.60 E/Medial E': 7.60 Medial E' Mango.: 0.10 m/s Lateral E' Mango.: 0.10 m/s Pulmonary Valve PV Peak Mango.: 0.86 m/s PV Peak Gr.: 2.97 mmHg Tricuspid Valve TR Peak Gr.: 9.79 mmHg Left Ventricle The left ventricle is normal size. There is normal LV segmental wall motion. There is normal left ventricular wall thickness. Left ventricular systolic function is normal. The left ventricular ejection fraction is within the normal range. LVEF is 55-60%. The left ventricular diastolic function is normal. Right Ventricle The right ventricle is normal size. The right ventricular systolic function is normal. Atria The left atrium size is normal. The right atrium size is normal. Aortic Valve The aortic valve is normal in structure. No aortic regurgitation is present. There is no aortic valvular stenosis. Mitral Valve The mitral valve is normal in structure. Trace to mild mitral regurgitation. No evidence of mitral valve stenosis. Tricuspid Valve The tricuspid valve is normal in structure. Trace tricuspid regurgitation. Pulmonic Valve Pulmonic valve is not well visualized. There is no pulmonic valvular regurgitation. Great Vessels The aortic root is normal in size. IVC [place] [address] 2 D/M-MODE ECHOCARDIOGRAM Name: EMANUEL PACHECO Room: [facility]#: [id number] Admission: 01/16/18 Attend Phys: Jhonatan Kimball MD Discharge: Date of : 49 Date of Service: 01/16/18 1027 Report #: [id number] collapses >50% with inspiration. Pericardium There is no pericardial effusion. <Conclusion> LVEF is 55-60%. Trace to mild mitral regurgitation. <ELECTRONICALLY SIGNED> By: Zbigniew Edward MD, FACC 01/16/18 1027 1027 1027 Zbigniew Edward MD, FAC /INF
== END ==
LOC: M.CRD 08:24
DX: Z51.11 Encounter for antineoplastic chemotherapy (principal)

== ENCOUNTER → 2018-08-04 | Outpatient (CLI) | payer OTHER ==
--- NOTE | ~2018-08-04 | ONC ---
[place] [address] RADIATION ONCOLOGY NOTE Name: EMANUEL PACHECO [id number] Admission: 08/04/18 Attend Phys: Jeffry Negro MD Discharge: Date of : 49 Report #: [id number] THIS REPORT FOR: //name// CC: Jordan Negro DATE OF SERVICE: 08/04/2018 REFERRING PHYSICIANS: Include Jordan Silveira DO; Jeffry Goss MD; Jhonatan Kimball MD and Carly Mark MD. [facility] phone is [phone]. PRIMARY SITE AND HISTOPATHOLOGY: The patient underwent a left lumpectomy by Dr. Mark on 12/30/2017. That revealed a high-grade infiltrating ductal carcinoma that measured 3.2 x 2.4 x 1.8 cm. Two lymph nodes removed, one was not involved with cancer, the another one was involved with micrometastasis of ductal adenocarcinoma that measured 0.17 cm. Final pathologic stage was [id number]. This was an ER negative, CT negative, HER-2/sarah negative breast cancer. The patient went on to receive chemotherapy under direction of her medical oncologist, Dr. Kimball and she was receiving Adriamycin and Cytoxan followed by Taxol. She was set up for her last dose of Taxol on 07/06/2018. She now presents to be evaluated for radiation therapy. She also had an area in the right submandibular gland resected by her ear, nose and throat physician, Dr. Goss on 01/18/2018 that ended up being a benign pleomorphic adenoma and that was completely resected with uninvolved margins. SOCIAL HISTORY: The patient is retired. She is . She has two children. Ethanol, she drinks one alcohol containing beverage like wine per month. Cigarettes, she does not smoke cigarettes. REVIEW OF SYSTEMS: RESPIRATORY: The patient was not short of breath during her appointment. MUSCULOSKELETAL: She had good range of motion in upper extremities. PHYSICAL EXAMINATION: With my nurse, Tanisha Page, present. VITAL SIGNS: The patient weighed 203 pounds. She was about 232.8 pounds on her November consult that was on 12/09/2017. So back on 08/04/2018, blood pressure is 136/80, pulse 86, oxygen saturation 93%, respirations 20. LYMPH NODES: She had no palpable cervical, supraclavicular or axillary lymphadenopathy. Left breast had no suspicious palpable masses. BREASTS: Right breast had no suspicious palpable masses. ABDOMEN: Not tender, spleen was not palpable. Liver was at the costal margin. EXTREMITIES: Have no clubbing, cyanosis [place] [address] RADIATION ONCOLOGY NOTE Name: EMANUEL PACHECO Room: [facility]#: [id number] Admission: 08/04/18 Attend Phys: Jeffry Negro MD Discharge: Date of : 49 Report #: [id number] LABORATORY DATA: From 07/11/2018, hemoglobin was 8.1, platelets were 177,000 and white blood cell count was 1.4 and from 07/06/2018, sodium 137, potassium 3.8, BUN 15, creatinine 0.81, AST 18, ALT 20. ASSESSMENT AND PLAN: 1. The patient is recuperating from her chemotherapy. She will probably be given a few more weeks to recuperate and she will be set up for simulation for radiation therapy to the chest wall and possibly regional lymph nodes. The efficacy of post-mastectomy of radiation therapy with involved lymph nodes can be found in the trial where in [place] and that was reported on [place] [employer] 2015 with the title "Regional Micheal Irradiation in Early Stage Breast Cancer" and in that study, they randomized woman with positive nodes between breast only radiation versus breast and regional lymph node radiation and the disease free survival was 82% when they had the lymph nodes treated versus 77% when they did not. So the patient only had the risks, benefits, logistics of radiation therapy explained to her and when she signed consent form on 12/09/2017, we again reviewed the consent form and answered all her questions and she was fine to proceed, so orders will be written to schedule her for simulation. 2. Hyperlipidemia. The patient takes simvastatin that is managed by her referring physicians. 3. Hypertension. The patient takes Lopressor and that is managed by her referring physicians. 4. Diabetes - the patient takes metformin that is managed by her referring physicians. Thank you for allowing me to participate in the care of this patient. By: [id number] Negro MD /tamara
== END ==
LOC: M.RTH 01-20 10:15
DX: C50.912 Malignant neoplasm of unspecified site of left female breast (principal); E78.5 Hyperlipidemia, unspecified; I10 Essential (primary) hypertension; E11.9 Type 2 diabetes mellitus without complications; Z92.21 Personal history of antineoplastic chemotherapy

== ENCOUNTER → 2018-12-21 | Outpatient (CLI) | payer OTHER | LOC: M.RAD 09:19 | DX: C50.412 Malignant neoplasm of upper-outer quadrant of left female breast (principal); Z17.1 Estrogen receptor negative status [ER-] ==

== ENCOUNTER → 2019-08-29 | Day surgery (SDC) | payer OTHER ==
[~2019-08-29] MED LIST changes: +CYMBALTA60 MG PO; +LOPRESSOR100 M1 PO; +MELATONIN3 M1 PO
--- NOTE | ~2019-08-29 | OP ---
[address] [address] OPERATIVE REPORT Name: EMANUEL PACHECO Room: [facility]#: [id number] Admission: 08/29/19 Attend Phys: Carly Mark MD Discharge: Date of : 49 Report #: [id number] THIS REPORT FOR: //name// cc: Jordan Silveira Bradley L. DO ~ THIS REPORT FOR: //name// CC: Jordan Mark DATE OF SERVICE: 08/29/2019 PREOPERATIVE DIAGNOSIS: Left breast cancer. POSTOPERATIVE DIAGNOSIS: Left breast cancer. PROCEDURE: Removal of right subclavian vein MediPort. SURGEON: Carly Mark MD UTILIZATION REVIEW COORDINATOR: None. ANESTHESIA: Local anesthesia. FINDINGS: Intact port. SPECIMENS: None. COMPLICATIONS: None. INDICATIONS: The patient is a 73-year-old female with a breast cancer diagnosed in 11/2017 for which she underwent a lumpectomy with port placement in 12/2017 and was found to have 1/2 nodes positive for micrometastases. This was essentially triple negative. She underwent an adjuvant chemotherapy which she completed. She was given the okay for port removal. Risks and benefits for this were discussed with the patient, delineated in the H and P and she agreed to proceed. DESCRIPTION OF PROCEDURE: In the preoperative area, the patient revealed that she had actually had some p.o. intake this morning; therefore, the decision was made to proceed with this under local anesthesia. The patient was brought to the operating room after informed consent had been obtained and she was placed on the operating room table with the back up position and the right upper chest was prepped and draped in normal sterile manner. Prior to skin incision, a combination of 1% lidocaine plain and 0.5% Marcaine with epinephrine was used. Her previous skin incision was incised with a knife. [place] [address] OPERATIVE REPORT Name: EMANUEL PACHECO Room: [facility]#: [id number] Admission: 08/29/19 Attend Phys: Carly Mark MD Discharge: Date of : 49 Report #: [id number] subcutaneous tissues using the Bovie electrocautery. The capsule was identified and incised with the Bovie electrocautery. The port was then removed from the pocket. It was noted to be intact. The tubing tract was closed with a [id number] suture of 3-0 Vicryl. The deep dermal layers were then closed with interrupted 3-0 Vicryl sutures and skin was closed with 4-0 Monocryl in a subcuticular manner. The wound was dressed with Dermabond dressing. The patient tolerated the procedure well. Sponge, lap and needle counts were correct x 2 at the end of procedure. She was transferred to recovery in stable condition. By: [id number] Mark MD /tamara
[2019-08-29 09:37] LABS: HEMATOCRIT 38.5 % (37.0-47.0); HEMOGLOBIN 13.3 gm/dL (12.0-15.0); MCH 35.9 pg (26.0-34.0); MCHC 34.6 g/dL (28.0-37.0); MCV 103.8 fL (80.0-100.0); MPV 7.6 fl. (7.2-11.1); RBC 3.71 mil/uL (4.20-5.00)
[2019-08-29 09:45] LABS: CALCIUM 8.9 mg/dL (8.5-10.1); CREATININE 0.9 mg/dL (0.6-1.3); POTASSIUM 4.2 mmol/L (3.5-5.1)
--- NOTE | 2019-08-29 14:13 | EKG ---
[place] [address] ELECTROCARDIOGRAM REPORT Name: EMANUEL PACHECO Room: [facility]#: [id number] Admission: 08/29/19 Attend Phys: Carly Mark MD Discharge: Date of : 49 Date of Service: 08/29/19 0931 Report #: [id number] THIS REPORT FOR: //name// [facility] Test Date: 2019-08-29 Test Time: 09:31:43 Pat Name: EMANUEL PACHECO Department: Room: Gender: F Frog Shaker: BHARAT BELLAMY : 1945 Requested By: Carly Mark Order Number: [id number] Reading MD: Zbigniew Edward Measurements Intervals [place] Rate: 73 P: 28 IA: 193 QRS: 1 QRSD: 131 T: 66 QT: 415 QTc: 458 Interpretive Statements Sinus rhythm Nonspecific intraventricular conduction delay Minimal ST elevation, inferior leads Compared to ECG 12/30/2017 07:45:42 no change Electronically Signed On 08-29-2019 14:12:09 CDT by Zbigniew Edward [email or web address] <ELECTRONICALLY SIGNED> By: Zbigniew Edward MD, FACC 08/29/19 1412 0931 Zbigniew Edward MD, [facility] /EPI
== END | disposition home or self-care (01) ==
LOC: M.SUR 06:41
PROVIDERS: Surgery
DX: Z45.2 Encounter for adjustment and management of vascular access device (principal); C50.912 Malignant neoplasm of unspecified site of left female breast; Z79.899 Other long term (current) drug therapy; Z88.2 Allergy status to sulfonamides

== ENCOUNTER → 2019-12-24 | Outpatient (CLI) | payer OTHER | LOC: M.RAD 09:50 | PROVIDERS: ATTEND Radiology Radiation Oncology | DX: C50.412 Malignant neoplasm of upper-outer quadrant of left female breast (principal); R92.1 Mammographic calcification found on diagnostic imaging of breast; Z17.1 Estrogen receptor negative status [ER-] ==

== ENCOUNTER → 2020-12-24 | Outpatient (CLI) | payer OTHER | LOC: M.RAD 10:35 | PROVIDERS: ATTEND Radiology Radiation Oncology | DX: C50.412 Malignant neoplasm of upper-outer quadrant of left female breast (principal); Z17.1 Estrogen receptor negative status [ER-] ==